=== PATIENT | male | born 1995 | race Caucasian/White ===

== ENCOUNTER 2020-07-11 21:54 | Emergency (ER) | payer BC ==
[~2020-07-11] VITALS: Ht 188 cm; Wt 122.7 kg
[2020-07-11 22:35] VITALS: BP 132/69; PULSE 76; TEMP 98.1
== END 2020-07-11 22:38 | disposition home or self-care (01) ==
LOC: COL.ER 21:54
DX: S01.01XA Laceration without foreign body of scalp, initial encounter (principal); W22.01XA Walked into wall, initial encounter

== ENCOUNTER → 2020-07-19 | Outpatient (CLI) | payer BC ==
[2020-07-19 17:39] VITALS: BP 128/90; PULSE 90; TEMP 98.5
== END ==
LOC: COL.ER 17:24
DX: Z48.02 Encounter for removal of sutures (principal)